=== PATIENT | male | born 1935 | race African-American/Black ===

== ENCOUNTER 2017-08-25 12:36 | Inpatient (IN) | payer MEDICARE ==
[~2017-08-25] VITALS: Ht 177.8 cm; Wt 76.7 kg
[2017-08-25] MEDS ORDERED: SODIUM CHLORIDE 0.9% 1,000 ML IV ONE (20:07)
[2017-08-25 20:52] LABS: BASOPHILS % 0.9 % (0.0-2.0); EOSINOPHILS % 0.5 % (0.0-5.0); HEMATOCRIT. 37.6 % (42.0-52.0); HEMOGLOBIN. 12.3 g/dL (14.0-18.0); LYMPHOCYTES % 8.3 % (20.0-50.0); MEAN CORPUSCULAR HEMOGLOBIN 28.2 pg (28.0-32.0); MEAN CORPUSCULAR VOLUME 86.3 fL (80.0-94.0); MONOCYTES % 10.6 % (2.0-8.0); NEUTROPHILS % 79.7 % (40.0-76.0); PLATELET 420 x1000/uL (130-400); RED BLOOD CELL COUNT 4.36 mill/uL (4.7-6.1); RED CELL DISTRIBUTION WIDTH 13.5 % (11.6-14.6)
[2017-08-25 20:57] LABS: INR 1.2; PROTHROMBIN TIME 12.5 sec (9.4-11.6)
[2017-08-25 21:05] LABS: CARBON DIOXIDE 27 mEq/L (21-32); CHLORIDE 98 mEq/L (98-107); TROPONIN I < 0.02 ng/mL (0.00-0.04)
[2017-08-25 22:57] LABS: CLARITY URINE CLOUDY (CLEAR); COLOR URINE DARK YELLOW (YELLOW); GLUCOSE URINE NEGATIVE (NEGATIVE); KETONES URINE TRACE (NEGATIVE); LEUKOCYTE ESTERASE URINE TRACE (NEGATIVE); NITRITE URINE NEGATIVE (NEGATIVE); OCCULT BLOOD URINE NEGATIVE (NEGATIVE); PROTEIN URINE TRACE (NEGATIVE)
[2017-08-26] VITALS (7 sets, daily range): BP systolic 74–152; BP diastolic 50–79
[2017-08-26] MEDS ORDERED: ACETAMINOPHEN 325MG TABLET PO PRN (07:45)
[2017-08-26] MEDS ORDERED: HYDROCODONE/ACETAMINOPHEN 5/325MG TABLET PO PRN ×2 (07:45→13:30)
[2017-08-26] MEDS ORDERED: MORPHINE SULFATE 4 MG/ML CPJ (NOT FOR IM USE) IV PRN (08:30)
[2017-08-26] MEDS ORDERED: AMLODIPINE 5MG TABLET PO SCH (09:00)
[2017-08-26] MEDS: ENOXAPARIN 40MG/0.4ML SYR SUBCUT SCH (09:24)
[2017-08-26] MEDS ORDERED: METOPROLOL TARTRATE 25MG TABLET PO NR (10:45)
[2017-08-26] MEDS ORDERED: CALCIUM CARBONATE 1250MG TABLET (500MG ELEMENTAL CALCIUM) PO NR (10:45)
[2017-08-26] MEDS: PIPERACILLIN/TAZ 3.375G PREMIX 50 ML IV SCH ×2 (14:40→18:19)
[2017-08-26 15:41] LABS: BASOPHILS % 0.5 % (0.0-2.0); EOSINOPHILS % 0.5 % (0.0-5.0); HEMATOCRIT. 36.2 % (42.0-52.0); HEMOGLOBIN. 11.9 g/dL (14.0-18.0); LYMPHOCYTES % 7.8 % (20.0-50.0); MEAN CORPUSCULAR VOLUME 85.3 fL (80.0-94.0); MEAN PLATELET VOLUME 8.6 fl (7.4-10.4); MONOCYTES % 9.9 % (2.0-8.0); NEUTROPHILS % 81.3 % (40.0-76.0); PLATELET 438 x1000/uL (130-400); RED BLOOD CELL COUNT 4.24 mill/uL (4.7-6.1); RED CELL DISTRIBUTION WIDTH 13.4 % (11.6-14.6)
[2017-08-26 15:50] LABS: CARBON DIOXIDE 27 mEq/L (21-32); CHLORIDE 101 mEq/L (98-107)
[2017-08-26] MEDS: METOPROLOL TARTRATE 25MG TABLET PO SCH (21:00)
[2017-08-26] MEDS: ATORVASTATIN CALCIUM 10MG TABLET PO SCH (21:01)
[2017-08-27] VITALS: BP 120/67
[2017-08-27] MEDS: PIPERACILLIN/TAZ 3.375G PREMIX 50 ML IV SCH ×4 (02:56→23:44)
[2017-08-27 04:00] VITALS: BP 130/73
[2017-08-27] MEDS ORDERED: AMLO10TA80 PO (05:11)
[2017-08-27 05:35] LABS: BASOPHILS % 0.6 % (0.0-2.0); EOSINOPHILS % 0.9 % (0.0-5.0); HEMATOCRIT. 35.6 % (42.0-52.0); HEMOGLOBIN. 11.8 g/dL (14.0-18.0); LYMPHOCYTES % 8.2 % (20.0-50.0); MEAN CORPUSCULAR HEMOGLOBIN 28.4 pg (28.0-32.0); MEAN CORPUSCULAR VOLUME 85.7 fL (80.0-94.0); MEAN PLATELET VOLUME 8.2 fl (7.4-10.4); MONOCYTES % 10.3 % (2.0-8.0); PLATELET 406 x1000/uL (130-400); RED BLOOD CELL COUNT 4.15 mill/uL (4.7-6.1); RED CELL DISTRIBUTION WIDTH 13.1 % (11.6-14.6)
[2017-08-27 05:44] LABS: CARBON DIOXIDE 29 mEq/L (21-32); CHLORIDE 102 mEq/L (98-107)
[2017-08-27 07:55] VITALS: BP 124/72
[2017-08-27] MEDS ORDERED: BUPIVACAINE/EPINEPHRINE/PF 0.25%/0.0005 30ML ONE (08:03)
[2017-08-27] MEDS ORDERED: BACITRACIN 50,000 UNITS/VIAL ONE (08:03)
[2017-08-27] MEDS ORDERED: NORMAL SALINE 0.9% 10 ML SYR ONE (08:03)
[2017-08-27 08:20] VITALS: BP 124/72
[2017-08-27] MEDS: DEXT 5%/0.9% NACL KCL 20MEQ/L 1,000 ML IV SCH ×2 (08:30→17:48)
[2017-08-27] MEDS ORDERED: PHENYLEPHRINE HCL 10 MG/ML 1ML (IV VIAL) IV ONE (08:59)
[2017-08-27] MEDS ORDERED: EPHEDRINE SULFATE 50MG/ML VIAL ONE (08:59)
[2017-08-27] MEDS ORDERED: FENTANYL CITRATE/PF 50MCG/ML 2ML VIAL ONE ×2 (08:59→11:42)
[2017-08-27] MEDS ORDERED: SODIUM CHLORIDE 0.9% 10ML VIAL ONE (08:59)
[2017-08-27] MEDS ORDERED: CEFAZOLIN SODIUM 1000MG/VIAL ONE (08:59)
[2017-08-27] MEDS ORDERED: MIDAZOLAM HCL 2 MG/2 ML VIAL ONE (08:59)
[2017-08-27] MEDS: ENOXAPARIN 40MG/0.4ML SYR SUBCUT SCH (09:00)
[2017-08-27] MEDS: AMLODIPINE 2.5MG TABLET PO SCH (09:00)
[2017-08-27] MEDS: CALCIUM CARBONATE 1250MG TABLET (500MG ELEMENTAL CALCIUM) PO SCH (09:00)
[2017-08-27] MEDS ORDERED: ROCURONIUM BROMIDE 10MG/ML VIAL 5ML IV ONE (09:00)
[2017-08-27] MEDS ORDERED: ENOXAPARIN 40MG/0.4ML SYR SUBCUT SCH (09:00)
[2017-08-27] MEDS: METOPROLOL TARTRATE 25MG TABLET PO SCH ×2 (09:00→20:50)
[2017-08-27] MEDS ORDERED: ACETAMINOPHEN 325MG TABLET PO PRN (09:30)
[2017-08-27] MEDS ORDERED: MAGNESIUM HYDROXIDE 400MG/5ML 30ML UDC PO PRN (09:30)
[2017-08-27] MEDS ORDERED: HYDROCODONE/ACETAMINOPHEN 5/325MG TABLET PO PRN ×2 (09:30)
[2017-08-27] MEDS ORDERED: CEFAZOLIN 1000MG PREMIX 50 ML IV SCH (09:30)
[2017-08-27] MEDS ORDERED: ONDANSETRON HCL 4MG/2ML VIAL ONE (09:47)
[2017-08-27] MEDS ORDERED: METOCLOPRAMIDE HCL 10MG/2ML VIAL ONE (09:47)
[2017-08-27] MEDS ORDERED: DEXAMETHASONE 4MG/ML 1ML VIAL ONE (10:04)
[2017-08-27] MEDS ORDERED: MORPHINE SULFATE/PF 1MG/ML 10ML AMP ONE (11:24)
[2017-08-27] MEDS ORDERED: MORPHINE SULFATE 2 MG/ML CPJ (NOT FOR IM USE) IV PRN (12:30)
[2017-08-27] MEDS ORDERED: ONDANSETRON INJ IV PRN (13:45)
[2017-08-27] MEDS ORDERED: MORPHINE PCA 50MG/50ML IV PRN (13:45)
[2017-08-27] MEDS ORDERED: DIPHENHYDRAMINE INJ IV PRN (13:45)
[2017-08-27] MEDS ORDERED: NALOXONE INJ IV PRN (13:45)
[2017-08-27 15:52] VITALS: BP 129/71
[2017-08-27] MEDS: DOCUSATE SODIUM 100MG CAPSULE PO SCH (17:06)
[2017-08-27 20:00] VITALS: BP 103/53
[2017-08-27] MEDS: ATORVASTATIN CALCIUM 10MG TABLET PO SCH (20:50)
[2017-08-28] VITALS: BP 115/61
[2017-08-28] MEDS: DEXT 5%/0.9% NACL KCL 20MEQ/L 1,000 ML IV SCH (03:58)
[2017-08-28 04:00] VITALS: BP 119/58
[2017-08-28] MEDS: PIPERACILLIN/TAZ 3.375G PREMIX 50 ML IV SCH (05:19)
[2017-08-28 08:00] VITALS: BP 114/58
[2017-08-28] MEDS: DOCUSATE SODIUM 100MG CAPSULE PO SCH (08:41)
[2017-08-28] MEDS: ENOXAPARIN 40MG/0.4ML SYR SUBCUT SCH (08:41)
[2017-08-28] MEDS: AMLODIPINE 2.5MG TABLET PO SCH (08:41)
[2017-08-28] MEDS: METOPROLOL TARTRATE 25MG TABLET PO SCH (08:42)
[2017-08-28] MEDS: CALCIUM CARBONATE 1250MG TABLET (500MG ELEMENTAL CALCIUM) PO SCH (08:42)
[2017-08-28 09:49] LABS: HEMATOCRIT. 32.4 % (42.0-52.0); HEMOGLOBIN. 10.7 g/dL (14.0-18.0); MEAN CORPUSCULAR HEMOGLOBIN 28.2 pg (28.0-32.0); MEAN CORPUSCULAR VOLUME 85.8 fL (80.0-94.0); MEAN PLATELET VOLUME 8.4 fl (7.4-10.4); PLATELET 387 x1000/uL (130-400); RED BLOOD CELL COUNT 3.78 mill/uL (4.7-6.1); RED CELL DISTRIBUTION WIDTH 13.3 % (11.6-14.6)
[2017-08-28 10:12] LABS: CARBON DIOXIDE 26 mEq/L (21-32); CHLORIDE 106 mEq/L (98-107)
[2017-08-28 10:34] VITALS: BP 114/58
[2017-08-28 12:00] VITALS: BP 100/52
[2017-08-28 16:20] LABS: PLATELET ESTIMATE NORMAL
== END 2017-08-28 13:52 | disposition home or self-care (01) | DRG 493 ==
LOC: ER 12:36 → 5WST 08-26 00:53 → ENRESERV 08-26 01:22
PROVIDERS: ADMIT Internal Medicine Geriatric Medicine; ATTEND Internal Medicine Geriatric Medicine
PROC: 0PSC04Z Reposition Right Humeral Head with Internal Fixation Device, Open Approach (ICD-10-PCS; principal; 2017-08-27 07:30)
DX: S42.211A Unspecified displaced fracture of surgical neck of right humerus, initial encounter for closed fracture (principal); N39.0 Urinary tract infection, site not specified; E44.1 Mild protein-calorie malnutrition; I11.9 Hypertensive heart disease without heart failure; I44.0 Atrioventricular block, first degree; E78.00 Pure hypercholesterolemia, unspecified; Z68.24 Body mass index [BMI] 24.0-24.9, adult; E78.5 Hyperlipidemia, unspecified; I25.2 Old myocardial infarction; Z79.82 Long term (current) use of aspirin; Z79.899 Other long term (current) drug therapy; Z87.891 Personal history of nicotine dependence; Z86.73 Personal history of transient ischemic attack (TIA), and cerebral infarction without residual deficits; W01.0XXA Fall on same level from slipping, tripping and stumbling without subsequent striking against object, initial encounter; Y92.512 Supermarket, store or market as the place of occurrence of the external cause; Y93.89 Activity, other specified; Y99.8 Other external cause status
CPT/HCPCS: 36415; 70450; 71010; 73030; 73060; 73080; 73200; 80048; 80053; 81001; 83880; 84484; 85025; 85610; 86850; 86900; 87040; 87086; 93005; 93970; 97116; 97162; 97166; 97535; 99285; A4216; A4565; C1713; J0171; J0690; J1100; J1650; J2250; J2270; J2274; J2370; J2405; J2543; J2765; J3010; J3490; J7030; J7040; J7042